=== PATIENT | female | born 1955 | race Caucasian/White ===

== ENCOUNTER → 2024-09-17 | Outpatient (REF) | payer MEDICARE, OTHER ==
[~2024-09-17] MED LIST: PREMPRO 0.3 MG1 EACH PO; SYNTHROID112 MCG PO; TOPROL XL100 MG PO
== END ==
LOC: MAMMO 12:17
PROVIDERS: ATTEND Nurse Practitioner Primary Care
DX: Z12.31 Encounter for screening mammogram for malignant neoplasm of breast (principal); Z13.820 Encounter for screening for osteoporosis
CPT/HCPCS: 77067; 77080